=== PATIENT | female | born 1975 | race Caucasian/White ===

== ENCOUNTER 2019-10-27 21:00 | Emergency (ER) | payer BC ==
[~2019-10-27] VITALS: Ht 165.1 cm; Wt 45.5 kg
[2019-10-27 21:09] VITALS: BP 108/57
[2019-10-27] MEDS ORDERED: traMADol 50MG tablet PO ONE (21:20)
[2019-10-27] MEDS ORDERED: IBUP-1984 PO (21:52)
== END 2019-10-27 22:31 | disposition home or self-care (01) ==
LOC: ER 21:01
DX: M25.512 Pain in left shoulder (principal); R07.81 Pleurodynia; Z79.899 Other long term (current) drug therapy
CPT/HCPCS: 71100; 73030; 99284